=== PATIENT | male | born 1950 | race Caucasian/White ===

== ENCOUNTER 2024-10-10 19:37 | Inpatient (IN) | payer MEDICARE, OTHER ==
[2024-10-09 22:30] VITALS: BP 190/95; TEMP 98.2; O2SAT 97
[~2024-10-10] VITALS: Ht 165.1 cm; Wt 76.7 kg
[2024-10-10 20:20] LABS: BASOPHILS % (AUTO) 0.6 % (0.0-2.0); EOSINOPHILS # (AUTO) 0.1 K/uL (0.0-0.7); EOSINOPHILS % (AUTO) 2.2 % (0.0-6.0); HEMATOCRIT 36 % (39-51); LYMPHOCYTES % (AUTO) 16.3 % (20.0-44.0); MEAN CORPUSCULAR HEMOGLOBIN 31 PG (26.0-33.0); MEAN CORPUSCULAR HGB CONC 33 g/dl (31.0-36.0); MEAN CORPUSCULAR VOLUME 94 fL (80-96); MONOCYTES # (AUTO) 0.6 K/uL (0.1-1.30); MONOCYTES % (AUTO) 10.7 % (2.0-12.0); NEUTROPHILS # (AUTO) 4.1 K/uL (1.8-8.9); NEUTROPHILS % (AUTO) 70.2 % (43.0-81.0); PLATELET COUNT (AUTO) 157 K/uL (150-450); RED BLOOD CELL COUNT(AUTO) 3.83 MIL/uL (4.5-6.0); RED CELL DISTRIBUTION WIDTH 13.6 % (11.5-15.0); WHITE BLOOD COUNT (AUTO) 5.9 K/uL (4.3-11.0)
[2024-10-10 20:59] LABS: ALANINE AMINOTRANSFERASE 26 U/L (12-78); ALBUMIN 3.7 g/dL (3.4-5.0); ALKALINE PHOSPHATASE 95 U/L (46-116); ASPARTATE AMINOTRANSFERASE 14 U/L (15-37); BILIRUBIN,DIRECT 0.1 mg/dL (0.0-0.2); BILIRUBIN,TOTAL 0.5 mg/dL (0.2-1.0); CALCIUM, SERUM 8.9 mg/dL (8.5-10.1); CARBON DIOXIDE 21 mmol/L (21-32); CHLORIDE 108 mmol/L (98-107); CREATININE 2.9 mg/dL (0.6-1.3); GLUCOSE 108 mg/dL (74-106); NT-PRO BNP 12894 pg/mL (0-125); POTASSIUM 3.7 mmol/L (3.5-5.1); SODIUM SERUM 139 mmol/L (136-145); TOTAL PROTEIN, SERUM 7.5 g/dL (6.4-8.2); UREA NITROGEN, BLOOD 48 mg/dL (7-18)
[2024-10-10] MEDS ORDERED: ASPIRIN 325 MG TABLET ONE (21:25)
[2024-10-10] MEDS ORDERED: FUROSEMIDE 40 MG/4 ML VIAL ONE (21:25)
[2024-10-10] MEDS: ASPIRIN 325 MG TABLET PO ONE (21:33)
[2024-10-10] MEDS: FUROSEMIDE 40 MG/4 ML VIAL IV ONE (21:33)
[2024-10-10] MEDS ORDERED: ZOLPIDEM TARTRATE 5 MG TABLET PO PRN (22:00)
[2024-10-10] MEDS ORDERED: ACETAMINOPHEN 325 MG TABLET PO PRN (22:00)
[2024-10-10] MEDS ORDERED: ONDANSETRON HCL/PF 4 MG/2 ML VIAL IVP PRN (22:00)
[2024-10-10] MEDS ORDERED: MAGNESIUM HYDROXIDE 30 ML UDC PO PRN (22:00)
[2024-10-10] MEDS ORDERED: MAG HYDROX/AL HYDROX/SIMETH 30 ML UDC PO PRN (22:00)
[2024-10-10] MEDS ORDERED: Z GUARD REMEDY 4 OZ OINT TP PRN (22:00)
[2024-10-10 23:17] VITALS: BP 190/95; TEMP 98.2; O2SAT 97
[2024-10-10] MEDS: ENOXAPARIN SODIUM 30 MG/0.3 ML DISP.SYRIN SQ SCH (23:45)
[2024-10-11] VITALS: BP 143/92; TEMP 98.4; O2SAT 98
[2024-10-11 04:00] VITALS: BP 134/85; TEMP 97.7; O2SAT 98
[2024-10-11 06:32] LABS: BASOPHILS # (AUTO) 0.1 K/uL (0.0-0.2); BASOPHILS % (AUTO) 1.1 % (0.0-2.0); EOSINOPHILS # (AUTO) 0.1 K/uL (0.0-0.7); EOSINOPHILS % (AUTO) 1.9 % (0.0-6.0); HEMATOCRIT 38 % (39-51); HEMOGLOBIN 12.7 g/dL (13.5-17.5); LYMPHOCYTES # (AUTO) 1.3 K/uL (0.8-4.8); LYMPHOCYTES % (AUTO) 21.2 % (20.0-44.0); MEAN CORPUSCULAR HEMOGLOBIN 31 PG (26.0-33.0); MEAN CORPUSCULAR HGB CONC 33 g/dl (31.0-36.0); MEAN CORPUSCULAR VOLUME 93 fL (80-96); MONOCYTES # (AUTO) 0.7 K/uL (0.1-1.30); MONOCYTES % (AUTO) 10.8 % (2.0-12.0); NEUTROPHILS # (AUTO) 3.9 K/uL (1.8-8.9); PLATELET COUNT (AUTO) 155 K/uL (150-450); RED BLOOD CELL COUNT(AUTO) 4.09 MIL/uL (4.5-6.0); RED CELL DISTRIBUTION WIDTH 13.6 % (11.5-15.0)
[2024-10-11 06:48] LABS: CALCIUM, SERUM 8.9 mg/dL (8.5-10.1); CARBON DIOXIDE 20 mmol/L (21-32); CHLORIDE 107 mmol/L (98-107); CREATININE 2.7 mg/dL (0.6-1.3); GLUCOSE 100 mg/dL (74-106); MAGNESIUM 2.1 mg/dL (1.8-2.4); PHOSPHORUS 4.2 mg/dL (2.5-4.9); POTASSIUM 3.6 mmol/L (3.5-5.1); SODIUM SERUM 141 mmol/L (136-145); UREA NITROGEN, BLOOD 48 mg/dL (7-18)
[2024-10-11 08:00] VITALS: BP 165/98; TEMP 98.2; O2SAT 96
[2024-10-11] MEDS: PANTOPRAZOLE 40 MG TABLET.DR PO SCH (08:09)
[2024-10-11] MEDS: FUROSEMIDE 40 MG/4 ML VIAL IV SCH (08:26)
[2024-10-11] MEDS: hydrALAZINE HCL 25 MG TABLET PO PRN (08:26)
[2024-10-11] MEDS: ASPIRIN 81 MG TAB.CHEW PO SCH (08:26)
[2024-10-11 12:00] VITALS: BP 162/115; TEMP 97.9; O2SAT 97
[2024-10-11] MEDS: NIFEdipine XL (30MG) 30 MG TAB PO SCH (12:06)
[2024-10-11] MEDS: ATORVASTATIN 10 MG TABLET PO SCH (12:06)
[2024-10-11] MEDS: hydrALAZINE HCL 50 MG TABLET PO SCH (12:07)
[2024-10-11] MEDS: NITROGLYCERIN 30 GM TUBE TP SCH (12:26)
[2024-10-11 16:00] VITALS: BP 134/98; TEMP 97.6; O2SAT 94
[2024-10-11] MEDS: DILTIAZEM HCL 50 MG IV IV ONE (17:42)
[2024-10-11 18:45] LABS: NT-PRO BNP 21399 pg/mL (0-125)
[2024-10-11 19:49] VITALS: BP 147/87; TEMP 98.4; O2SAT 96
[2024-10-11] MEDS: METOPROLOL TARTRATE 50 MG TABLET PO SCH (21:15)
[2024-10-12 01:14] VITALS: BP 148/89; TEMP 98.6; O2SAT 96
[2024-10-12 04:00] VITALS: BP 118/79; TEMP 98.1; O2SAT 97
[2024-10-12 04:08] VITALS: BP 118/79; TEMP 98.1; O2SAT 97
[2024-10-12 06:42] LABS: BASOPHILS # (AUTO) 0.1 K/uL (0.0-0.2); EOSINOPHILS # (AUTO) 0.1 K/uL (0.0-0.7); EOSINOPHILS % (AUTO) 1.5 % (0.0-6.0); HEMATOCRIT 40 % (39-51); HEMOGLOBIN 13.5 g/dL (13.5-17.5); LYMPHOCYTES # (AUTO) 0.9 K/uL (0.8-4.8); LYMPHOCYTES % (AUTO) 12.9 % (20.0-44.0); MEAN CORPUSCULAR HEMOGLOBIN 32 PG (26.0-33.0); MEAN CORPUSCULAR HGB CONC 34 g/dl (31.0-36.0); MEAN CORPUSCULAR VOLUME 93 fL (80-96); MONOCYTES # (AUTO) 0.9 K/uL (0.1-1.30); MONOCYTES % (AUTO) 11.8 % (2.0-12.0); NEUTROPHILS # (AUTO) 5.3 K/uL (1.8-8.9); NEUTROPHILS % (AUTO) 72.8 % (43.0-81.0); PLATELET COUNT (AUTO) 185 K/uL (150-450); RED BLOOD CELL COUNT(AUTO) 4.25 MIL/uL (4.5-6.0); RED CELL DISTRIBUTION WIDTH 13.4 % (11.5-15.0); WHITE BLOOD COUNT (AUTO) 7.2 K/uL (4.3-11.0)
[2024-10-12 07:14] LABS: ALANINE AMINOTRANSFERASE 26 U/L (12-78); ALBUMIN 3.8 g/dL (3.4-5.0); ALKALINE PHOSPHATASE 103 U/L (46-116); ASPARTATE AMINOTRANSFERASE 19 U/L (15-37); BILIRUBIN,TOTAL 0.8 mg/dL (0.2-1.0); CALCIUM, SERUM 8.9 mg/dL (8.5-10.1); CARBON DIOXIDE 20 mmol/L (21-32); CHLORIDE 106 mmol/L (98-107); CREATININE 3.2 mg/dL (0.6-1.3); GLUCOSE 105 mg/dL (74-106); MAGNESIUM 2.2 mg/dL (1.8-2.4); POTASSIUM 3.5 mmol/L (3.5-5.1); SODIUM SERUM 141 mmol/L (136-145); TOTAL PROTEIN, SERUM 7.9 g/dL (6.4-8.2); UREA NITROGEN, BLOOD 50 mg/dL (7-18)
[2024-10-12 07:16] LABS: CREATINE KINASE, TOTAL 279 U/L (39-308)
[2024-10-12 14:33] LABS: APPEARANCE,URINE SLIGHTLY CLOUDY (CLEAR); BILIRUBIN,URINE NEGATIVE (NEGATIVE); BLOOD, URINE TRACE-INTA Ery/uL (NEGATIVE); COLOR,URINE YELLOW (YELLOW); KETONES,URINE NEGATIVE (NEGATIVE); LEUKOCYTE ESTERASE ,URINE 2+ (NEGATIVE); NITRITE, URINE NEGATIVE (NEGATIVE); PROTEIN,URINE TRACE mg/dl (NEGATIVE); UGLUCOSE NEGATIVE (NEGATIVE); UROBILINOGEN,URINE 0.2 EU/dL (0.2)
[2024-10-12 14:45] LABS: ADD URINE CULTURE YES; BACTERIA,URINE Many /HPF (None Seen); WBC,URINE TOO NUMEROUS TO COUN /HPF (0-3)
[2024-10-12 14:47] LABS: SQUAMOUS EPITHELIAL CELL,UR None Seen /HPF (None Seen)
[2024-10-12 15:02] LABS: CREATININE, URINE 35.8 MG/DL (30.0-125.0); URINE TOTAL PROTEIN 32.3 mg/dL (0-11.9)
[2024-10-12 15:14] LABS: EOSINOPHIL,URINE Rare
[2024-10-12 16:00] VITALS: BP 130/85; TEMP 98.4; O2SAT 98
[2024-10-12] MEDS: DOCUSATE SODIUM 100 MG CAPSULE PO SCH (18:31)
[2024-10-12] MEDS: CEFTRIAXONE 1 G in IV D5W 50 ML IV SCH (18:39)
[2024-10-12 20:00] VITALS: BP 120/88; TEMP 98.2; O2SAT 96
[2024-10-12 20:02] VITALS: BP 120/88; TEMP 98.2; O2SAT 96
[2024-10-13] VITALS: BP 112/68; TEMP 97.9; O2SAT 98
[2024-10-13 04:00] VITALS: BP 98/58; TEMP 98.6; O2SAT 96
[2024-10-13 04:38] VITALS: BP 98/60; TEMP 98.6; O2SAT 96
[2024-10-13 06:19] LABS: BASOPHILS # (AUTO) 0.1 K/uL (0.0-0.2); BASOPHILS % (AUTO) 1.1 % (0.0-2.0); EOSINOPHILS # (AUTO) 0.2 K/uL (0.0-0.7); EOSINOPHILS % (AUTO) 3.2 % (0.0-6.0); HEMATOCRIT 39 % (39-51); HEMOGLOBIN 13.1 g/dL (13.5-17.5); LYMPHOCYTES # (AUTO) 1.3 K/uL (0.8-4.8); LYMPHOCYTES % (AUTO) 20.4 % (20.0-44.0); MEAN CORPUSCULAR HEMOGLOBIN 31 PG (26.0-33.0); MEAN CORPUSCULAR HGB CONC 34 g/dl (31.0-36.0); MEAN CORPUSCULAR VOLUME 93 fL (80-96); MONOCYTES # (AUTO) 0.8 K/uL (0.1-1.30); MONOCYTES % (AUTO) 12.7 % (2.0-12.0); NEUTROPHILS % (AUTO) 62.6 % (43.0-81.0); PLATELET COUNT (AUTO) 166 K/uL (150-450); RED BLOOD CELL COUNT(AUTO) 4.18 MIL/uL (4.5-6.0); RED CELL DISTRIBUTION WIDTH 13.5 % (11.5-15.0); WHITE BLOOD COUNT (AUTO) 6.3 K/uL (4.3-11.0)
[2024-10-13 06:50] LABS: CALCIUM, SERUM 8.8 mg/dL (8.5-10.1); CREATININE 3.4 mg/dL (0.6-1.3); GLUCOSE 94 mg/dL (74-106); PHOSPHORUS 3.6 mg/dL (2.5-4.9); UREA NITROGEN, BLOOD 61 mg/dL (7-18)
[2024-10-13 07:16] LABS: CARBON DIOXIDE 21 mmol/L (21-32); CHLORIDE 103 mmol/L (98-107); SODIUM SERUM 137 mmol/L (136-145)
[2024-10-13] MEDS: APIXABAN 2.5 MG TABLET PO SCH (17:42)
[2024-10-13 20:00] VITALS: BP_SYST 111; BP_SYST 114; BP_DIAS 78; BP_DIAS 97; TEMP 98.1; TEMP 98.8; O2SAT 96; O2SAT 98
[2024-10-14 04:10] LABS: PTH, INTACT 193 pg/mL (15-65)
[2024-10-14 07:00] VITALS: BP 135/105; TEMP 97.9; O2SAT 96
[2024-10-14 07:01] LABS: BASOPHILS # (AUTO) 0.1 K/uL (0.0-0.2); BASOPHILS % (AUTO) 1.1 % (0.0-2.0); EOSINOPHILS # (AUTO) 0.2 K/uL (0.0-0.7); EOSINOPHILS % (AUTO) 2.8 % (0.0-6.0); HEMATOCRIT 42 % (39-51); HEMOGLOBIN 13.9 g/dL (13.5-17.5); LYMPHOCYTES # (AUTO) 1.6 K/uL (0.8-4.8); LYMPHOCYTES % (AUTO) 23.7 % (20.0-44.0); MEAN CORPUSCULAR HEMOGLOBIN 32 PG (26.0-33.0); MEAN CORPUSCULAR HGB CONC 34 g/dl (31.0-36.0); MEAN CORPUSCULAR VOLUME 94 fL (80-96); MONOCYTES # (AUTO) 0.8 K/uL (0.1-1.30); MONOCYTES % (AUTO) 12.1 % (2.0-12.0); NEUTROPHILS # (AUTO) 4.1 K/uL (1.8-8.9); NEUTROPHILS % (AUTO) 60.3 % (43.0-81.0); PLATELET COUNT (AUTO) 187 K/uL (150-450); RED CELL DISTRIBUTION WIDTH 13.6 % (11.5-15.0); WHITE BLOOD COUNT (AUTO) 6.7 K/uL (4.3-11.0)
[2024-10-14 07:18] LABS: CALCIUM, SERUM 9.1 mg/dL (8.5-10.1); CREATININE 3.2 mg/dL (0.6-1.3); POTASSIUM 3.9 mmol/L (3.5-5.1)
[2024-10-14 09:07] LABS: *SPE A/G RATIO 1.1 (0.7-1.7); *SPE ALBUMIN 3.7 g/dL (2.9-4.4); *SPE ALPHA-1-GLOBULIN 0.3 g/dL (0.0-0.4); *SPE ALPHA-2-GLOBULIN 0.7 g/dL (0.4-1.0); *SPE BETA GLOBULIN 1.1 g/dL (0.7-1.3); *SPE GLOBULIN, TOTAL 3.5 g/dL (2.2-3.9); *SPE M-SPIKE Not Observed g/dL (Not Observed); *SPE PROTEIN TOTAL 7.2 g/dL (6.0-8.5); *SPEGAMMA GLOBULIN 1.5 g/dL (0.4-1.8)
[2024-10-14 11:48] VITALS: BP 135/105; TEMP 97.9; O2SAT 96
[2024-10-14 12:00] VITALS: BP 114/70; TEMP 98.2; O2SAT 94
[2024-10-14 16:00] VITALS: BP 160/93; TEMP 98.2; O2SAT 94
[2024-10-14 20:00] VITALS: BP 122/81; TEMP 98.6; O2SAT 97
[2024-10-15 07:34] LABS: CALCIUM, SERUM 8.9 mg/dL (8.5-10.1)
[2024-10-15 07:49] LABS: BASOPHILS # (AUTO) 0.1 K/uL (0.0-0.2); BASOPHILS % (AUTO) 1.3 % (0.0-2.0); EOSINOPHILS # (AUTO) 0.1 K/uL (0.0-0.7); EOSINOPHILS % (AUTO) 2.2 % (0.0-6.0); HEMATOCRIT 38 % (39-51); HEMOGLOBIN 12.6 g/dL (13.5-17.5); LYMPHOCYTES # (AUTO) 1.1 K/uL (0.8-4.8); LYMPHOCYTES % (AUTO) 19.1 % (20.0-44.0); MEAN CORPUSCULAR HEMOGLOBIN 31 PG (26.0-33.0); MEAN CORPUSCULAR HGB CONC 33 g/dl (31.0-36.0); MEAN CORPUSCULAR VOLUME 94 fL (80-96); MONOCYTES # (AUTO) 0.7 K/uL (0.1-1.30); MONOCYTES % (AUTO) 11.9 % (2.0-12.0); NEUTROPHILS # (AUTO) 3.8 K/uL (1.8-8.9); NEUTROPHILS % (AUTO) 65.5 % (43.0-81.0); PLATELET COUNT (AUTO) 172 K/uL (150-450); RED BLOOD CELL COUNT(AUTO) 4.08 MIL/uL (4.5-6.0); RED CELL DISTRIBUTION WIDTH 13.6 % (11.5-15.0); WHITE BLOOD COUNT (AUTO) 5.7 K/uL (4.3-11.0)
[2024-10-15 08:00] VITALS: BP 143/97; TEMP 97.9; O2SAT 97
[2024-10-15] MEDS ORDERED: ASPI-1169 PO (12:23)
[2024-10-15] MEDS ORDERED: METO50TA16 PO (12:23)
[2024-10-15] MEDS ORDERED: NIFE-35 PO (12:23)
[2024-10-15] MEDS ORDERED: CEFD300C3 PO (12:23)
[2024-10-15] MEDS ORDERED: DOCU100C36 PO (12:23)
[2024-10-15] MEDS ORDERED: APIX2.5T PO (12:23)
[2024-10-15] MEDS ORDERED: ATOR10TA PO (12:23)
[2024-10-15] MEDS ORDERED: HYDR-4077 PO (12:23)
[2024-10-15 18:06] LABS: RENIN, PLASMA 0.53 ng/mL/hr (.)
[2024-10-15 18:44] VITALS: BP 148/82
[2024-10-16 17:07] LABS: ALDOSTERONE,LCMS 7.1 ng/dL (.)
== END 2024-10-15 20:42 | disposition home or self-care (01) | DRG 280 ==
LOC: ER 19:44 → TELE 21:36 → MED 10-13 14:10
PROVIDERS: ADMIT Student in an Organized Health Care Education/Training Program; ATTEND Nurse Practitioner Acute Care
DX: I16.0 Hypertensive urgency (principal); N17.0 Acute kidney failure with tubular necrosis; I21.A1 Myocardial infarction type 2; D68.69 Other thrombophilia; N39.0 Urinary tract infection, site not specified; I48.0 Paroxysmal atrial fibrillation; N18.9 Chronic kidney disease, unspecified; D63.1 Anemia in chronic kidney disease; E03.9 Hypothyroidism, unspecified; Z87.440 Personal history of urinary (tract) infections; Z91.199 Patient's noncompliance with other medical treatment and regimen due to unspecified reason; Z74.01 Bed confinement status; Z79.82 Long term (current) use of aspirin; M89.8X9 Other specified disorders of bone, unspecified site; I12.9 Hypertensive chronic kidney disease with stage 1 through stage 4 chronic kidney disease, or unspecified chronic kidney disease; B96.89 Other specified bacterial agents as the cause of diseases classified elsewhere
CPT/HCPCS: 36415; 71045-TC; 76770-TC; 80048-TC; 80053-TC; 80061-TC; 80076-TC; 81001; 82088; 82550-TC; 82570-TC; 83735-TC; 83880; 83970; 84100-TC; 84155; 84165; 84244; 84300-TC; 84439-TC; 84443-TC; 84484-TC; 85025-TC; 87086-TC; 93307-TC; 97110-TC; 97116-TC; 97530-TC; A4223; G0378; J0696; J1650; J1940; J3490; J7050; J7060